=== PATIENT | female | born 2000 | race Caucasian/White ===

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

== ENCOUNTER 2020-06-05 12:47 | Outpatient (CLI) | payer OTHER, SELFPAY ==
[2020-06-05 12:59] LABS: Basophils Absolute Auto 0.04 K/mm3 (0.00-0.10); Basophils Percent Auto 0.6 % (0.0-1.0); Eosinophils Absolute Auto 0.14 K/mm3 (0.02-0.50); Eosinophils Percent Auto 2.1 % (1.0-6.0); Hematocrit 42.2 % (35.0-49.0); Hemoglobin 14.1 g/dL (12.0-15.0); Immature Granulocyte Absolute 0.01 K/mm3 (0.00-0.00); Immature Granulocyte Percent A 0.2 % (0.0-0.0); Lymphocytes Absolute Auto 2.01 K/mm3 (1.10-4.50); Lymphocytes Percent Auto 30.2 % (18.0-42.0); Mean Corpuscular HGB Conc 33.4 g/dL (32.0-36.0); Mean Corpuscular Hemoglobin 29.3 pg (27.0-31.0); Mean Corpuscular Volume 87.6 fL (78.0-102.0); Mean Platelet Volume 9.2 fl (9.2-11.8); Monocytes Absolute Auto 0.58 K/mm3 (0.10-0.90); Monocytes Percent Auto 8.7 % (2.0-11.0); Neutrophils Absolute Auto 3.9 K/mm3 (1.7-7.2); Neutrophils Percent Auto 58.2 % (50.0-70.0); Platelet Count Result 275 K/mm3 (150-420); Red Blood Count 4.82 M/mm3 (4.20-5.40); Red Cell Distribution Width 12.4 % (11.6-14.4); White Blood Count 6.7 K/mm3 (4.8-10.8)
[2020-06-05 13:34] LABS: Alanine Aminotransferase 18 U/L (14-59); Albumin Level 4.8 g/dL (3.4-5.0); Alkaline Phosphatase 95 U/L (50-130); Anion Gap 9 mmol/L (8-16); Aspartate Amino Transferase 14 U/L (15-37); Bilirubin,Total 0.7 mg/dL (0.00-1.00); Blood Urea Nitrogen 8 mg/dL (7-18); Calcium 9.5 mg/dL (8.5-10.1); Carbon Dioxide 28 mmol/L (21-32); Chloride 102 mmol/L (98-108); Estimated Glomerular Filt Rate > 60; Free T4 Free Thyroxine 0.94 ng/dL (0.76-1.46); Glucose 99 mg/dL (70-99); Osmolality Calculated 286 mOsm/kg (285-295); Sodium 139 mmol/L (136-145); Thyroid Stimulating Hormone 3.29 uIU/mL (0.52-4.13); Total Protein 8.2 g/dL (6.4-8.2)
== END 2020-06-05 12:48 | disposition home or self-care (01) ==
LOC: CHSLAB 12:51
PROVIDERS: PCP Pediatrics; Visit Provider Nurse Practitioner Pediatrics
DX: R94.6 Abnormal results of thyroid function studies (principal)
CPT/HCPCS: 36415; 80053; 84439; 84443; 85025

== ENCOUNTER 2023-02-23 21:20 | Emergency (ER) | payer OTHER, SELFPAY ==
--- NOTE | ~2023-02-23 | XR_ITS ---
EXAM: XR ankle RT min 3V, XR foot RT min 3V DATE: 02/23/2023 21:35 HISTORY: LATERAL ankle pain/swelling, lateral foot pain following injury. COMPARISON: None available. FINDINGS: Normal mineralization. No definite fracture or dislocation. Subtle cortical lucency in the navicular bone, seen only in one view. No lytic or blastic lesion. Joint spaces are maintained. No e rosion or periosteal change. Forefoot soft tissue swelling. IMPRESSION: Subtle cortical lucency in the medial aspect of the navicular, seen only in the frontal view and pres umably artifactual, unless accompanied by point tenderness over the navicular. Forefoot soft tissue swelling. Otherwise, no acute osseous finding in the right ankle or right foot. Reviewed, dictated and finalized at location [facility] IMPRESSION: Subtle cortical lucency in the medial aspect of the navicular, seen only in the frontal view and presumably artifactual, unless accompanied by point tendernes s over the navicular. Forefoot soft tissue swelling. Otherwise, no acute osseous finding in the right ankle or right foot.
[2023-02-23 21:22] VITALS: BP 123/85; PULSE 81; RESP 18; TEMP 36.8
--- NOTE | 2023-02-23 21:22 | ED.LOWEXIN ---
HPI - Extremity Injury (Lower) General Chief Complaint: Extremity Injury, Lower Stated Complaint: pain in top right foot Time Seen by Provider: 02/23/23 21:22 Source: patient Mode of arrival: ambulatory Limitations: no limitations History of Present Illness HPI Narrative: 22-year-old female with a history of autistic disorder presents to the ER with -- right foot pain and swelling. She hit the edge of her bed 3 days ago. patient is able to bear weight on that leg. No other injuries noted. MD complaint: foot injury Onset (ago): day(s) ( Three days ago) Injury: Right: foot Type of Injury: blunt Place: home Severity: mild Relieving factors: immobilization Exacerbating factors: movement Context: direct blow Other symptoms: none Related Data Home Medications Medication Instructions Recorded Confirmed montelukast 10 mg tablet 10 mg PO DAILY 05/31/19 02/23/23 Allergies Allergy/AdvReac Type Severity Reaction Status Date / Time No Known Allergies Allergy Verified 02/23/23 21:42 Review of Systems Review of Systems: All systems reviewed & are unremarkable except as noted in HPI and below Constitutional: Constitutional: Reports as per HPI and Reports no additional constitutional complaints Eyes: Eyes: Reports as per HPI and Reports no additional eye complaints ENT: Reports system reviewed and no additional complaints, except as documented and Reports as per HPI Cardiovascular: Cardiovascular: Reports as per HPI and Reports no additional cardiovascular complaints Respiratory: Respiratory: Reports as per HPI and Reports no additional respiratory complaints Gastrointestinal: Gastrointestinal: Reports as per HPI and Reports no additional gastrointestinal complaints Genitourinary: Genitourinary: Reports no additional female genitourinary complaints and Reports as per HPI Musculoskeletal: Comments: pain and swelling of the right lateral foot and ankle. Erythema over the right lateral foot. Integumentary/Breasts: Skin/Breast: Reports system reviewed and no additional complaints, except as docu and Reports as per HPI Comments: Erythema over the right lateral foot Neurologic: Reports system reviewed and no additional complaints, except as documented and Reports as per HPI Psychiatric: Psychiatric: Reports no additional psychiatric complaints and Reports as per HPI Endocrine: Endocrine: Reports no additional endocrine complaints and Reports as per HPI Hematologic/Lymphatic: Hematologic/Lymphatic: Reports no additional hematologic/lymphatic complaints and Reports as per HPI Allergic/Immunologic: Allergic/Immunologic: Reports no additional allergic/immunologic complaints and Reports as per HPI PMFSH Past Medical History Medical History Autism Exam Const: General: no acute distress Orientation/consciousness: patient oriented x3 Limitations: no limitations HENMT: Head: normal to inspection Ears: external ears normal Face/Nose/Sinus: Normal external nose present Face and sinus: normal facial exam Mouth: Yes Normal oral and palatal mucosa present Throat: posterior oropharynx normal Eyes: Conjunctivae: conjunctivae normal Pupils: Equal, round and reactive pupils present EOM: EOMs intact bilaterally Direct Ophthalmoscopy: no photophobia Neck: Neck: normal visual inspection, no lymphadenopathy and no meningeal signs Chest: Chest palpation & inspection: normal inspection of the chest Resp: Effort & Inspection: normal respiratory effort Auscultation: clear to auscultation bilaterally Cardio: Rate: regular rate Rhythm: regular rhythm GI: GI Palp: Yes Soft to palpation Auscultation: normal bowel sounds : General: Yes no CVA tenderness Urinary Catheter: Urinary Catheter: patent and draining Back/Spine/Pelvis: Back: no CVA tenderness Skin: Other: erythematous rash over bilateral lateral foot Neuro: General: patient o
== END 2023-02-23 22:27 | disposition home or self-care (01) ==
PROVIDERS: Emergency Provider Internal Medicine Critical Care Medicine
DX: S90.31XA Contusion of right foot, initial encounter (principal); S93.401A Sprain of unspecified ligament of right ankle, initial encounter; S96.911A Strain of unspecified muscle and tendon at ankle and foot level, right foot, initial encounter; F84.0 Autistic disorder; X58.XXXA Exposure to other specified factors, initial encounter
CPT/HCPCS: 73610; 73630; 99283